=== PATIENT | female | born 1995 | race Caucasian/White ===

== ENCOUNTER 2016-12-19 12:20 | Emergency (ER) | payer OTHER ==
[2016-12-19] MEDS ORDERED: SODIUM CHLORIDE 0.9% 500 ML IV STA (13:12)
[2016-12-19] MEDS ORDERED: SODIUM CHLORIDE 0.9% 1,000 ML IV STA (13:12)
[2016-12-19] MEDS ORDERED: MORPHINE SULFATE 10 MG/ML SYRINGE IVP PRN (13:14)
[2016-12-19] MEDS ORDERED: ONDANSETRON ODT 4 MG TAB PO STA (13:15)
[2016-12-19 13:43] LABS: Anisocytosis Slight; Basophils % (A) 0 %; CH 21.2; CHCM 29.1; Eosinophils % (A) 0 %; HCT 34.2 % (34.0-46.0); HDW 2.69; Hypochromasia Marked; Luc # (Auto) 0.05; Luc % (Auto) 1; Lymphocytes # (A) 0.7 k/uL (1.0-4.8); Lymphocytes % (A) 11 %; MCH 21.3 pg (25.0-35.0); MCHC 29.3 g/dL (31.0-37.0); MCV 72.8 fL (80.0-100.0); Microcytosis Moderate; Monocytes # (A) 0.3 k/uL (0-1.0); Monocytes % (A) 5 %; Neutrophils # (A) 5.4 k/uL (1.3-7.7); Neutrophils % (A) 83 %; WBC 6.5 k/uL (4.0-11.0); WBC (Perox) 6.25
[2016-12-19 13:52] LABS: ALT 31 U/L (9-52); AST 20 U/L (14-36); Alkaline Phosphatase 50 U/L (38-126); Anion Gap 10 mmol/L; Blood Urea Nitrogen 14 mg/dL (7-17); Calcium 9.3 mg/dL (8.4-10.2); Carbon Dioxide 24 mmol/L (22-30); Chloride 104 mmol/L (98-107); Glucose 87 mg/dL (74-99); Non-African American GFR(MDRD) >60 (>60 ml/min/1.73 sqM); Potassium 4.1 mmol/L (3.5-5.1); Sodium 138 mmol/L (137-145); Total Bilirubin 0.5 mg/dL (0.2-1.3); Total Protein 7.3 g/dL (6.3-8.2)
[2016-12-19 14:01] LABS: Creatine Kinase 64 U/L (30-135)
[2016-12-19 14:03] LABS: Partial Thromboplastin Time 26.6 sec (22.0-30.0); Prothrombin Time 10.5 sec (9.0-12.0)
--- NOTE | 2016-12-19 14:05 | ED ---
SOB HPI - General Chief Complaint: Shortness of Breath Stated Complaint: chest pain, diff breathing Time Seen by Provider: 12/19/16 13:06 Source: patient Mode of arrival: ambulatory Limitations: no limitations - History of Present Illness Initial Comments: 21 years old female presented with shortness of breath for the last 2 days and now pain in the left side of the chest is worse with deep breaths. She denies any trauma any fall or any extreme short of physical activity over the last few days. She has no history of asthma she denies any control pills she does smoke for the last 3 years. No fever no chills no sputum no abdominal pain no frequency urgency dysuria - Related Data Home Medications Medication Instructions Recorded Confirmed Naproxen 500 mg PO Q12H PRN 12/19/16 12/19/16 Allergies Allergy/AdvReac Type Severity Reaction Status Date / Time No Known Allergies Allergy Verified 12/19/16 13:25 Review of Systems ROS Statement: Those systems with pertinent positive or pertinent negative responses have been documented in the HPI. ROS Other: All systems not noted in ROS Statement are negative. Past Medical History Past Medical History: No Reported History History of Any Multi-Drug Resistant Organisms: None Reported Past Surgical History: No Surgical Hx Reported Past Psychological History: No Psychological Hx Reported Smoking Status: Current every day smoker Past Alcohol Use History: None Reported Past Drug Use History: None Reported General Exam - General Exam Comments Initial Comments: General: The patient is awake and alert, in no distress, and does not appear acutely ill. Skin: Skin is warm and dry and no rashes or lesions are noted. Eye: Pupils are equal, round and reactive to light, extra-ocular movements are intact; there is normal conjunctiva bilaterally. Ears, nose, mouth and throat: There are moist mucous membranes and no oral lesions. Neck: The neck is supple, there is no tenderness or JVD. Cardiovascular: There is a regular rate and rhythm. No murmur, rub or gallop is appreciated. Respiratory: To auscultation bilateral, no wheezing no rhonchi no distress respiratory myers noticed Gastrointestinal: Soft, non-distended, non-tender abdomen without masses or organomegaly noted. There is no rebound or guarding present. Bowel sounds are unremarkable. Back: There is no tenderness to palpation in the midline. There is no obvious deformity. Musculoskeletal: Normal ROM, no tenderness, There is no pedal edema. There is no calf tenderness or swelling. No cords were appreciated. Neurological: CN II-XII intact, Cranial nerves III through XII are intact. There are no obvious motor or sensory deficits. Coordination appears grossly intact. Speech is normal. Psychiatric: Cooperative, appropriate mood & affect, normal judgment. Limitations: no limitations Course Vital Signs 12/19/16 12/19/16 12/19/16 12:29 14:43 15:22 Temperature 98.5 F Pulse Rate 90 72 66 Respiratory 20 18 20 Rate Blood Pressure 108/58 97/56 97/59 O2 Sat by Pulse 100 97 97 Oximetry EKG was reviewed in the ER, is normal sinus rhythm ventricular rate is 91 AK interval is 158 QRS duration is 80 QT/QTc is 356/437, this EKG noticed some T- wave inversion in lead V5 and some T-wave flattening in aVL and aVF no ST elevation noticed in this ekg At term 1520 patient was reassessed, her chest x-ray didn't show any pneumothorax, troponin is negative, comprehensive metabolic panel, CBC within normal range so is the d-dimer at this point seems like a chest wall pain she is advised to use some Advil 4-600 mg 3 times a day as needed and follow-up with family doctor or return to the ER Medical Decision Making - Lab Data Result diagrams: 12/19/16 13:30 12/19/16 13:30 Lab Results 12/19/16 12/19/16 12/19/16 Range/Units 13:30 13:30 13:30 WBC (4.0-11.0) k/uL RBC (3.80-5.40) m/uL Hgb (11.4-16.0) gm/dL Hct (34.0-46.0) % MCV (80.0-100.0) fL MCH (25.0-35.0) pg MCHC (31.0-37.0) g/dL RDW (11.5-15.5) % Plt Count (150-450) k/uL Neutrophils % % Lymphocytes % % Monocytes % % Eosinophils % % Basophils % % Neutrophils # (1.3-7.7) k/uL Lymphocytes # (1.0-4.8) k/uL Monocytes # (0-1.0) k/uL Eosinophils # (0-0.7) k/uL Basophils # (0-0.2) k/uL Hypochromasia Anisocytosis Microcytosis PT 10.5 (9.0-12.0) sec INR 1.0 (<1.2) APTT 26.6 (22.0-30.0) sec D-Dimer 0.36 (<0.60) mg/L FEU Sodium (137-145) mmol/L Potassium (3.5-5.1) mmol/L Chloride (98-107) mmol/L Carbon Dioxide (22-30) mmol/L Anion Gap mmol/L BUN (7-17) mg/dL Creatinine (0.52-1.04) mg/dL Est GFR (MDRD) Af Amer (>60 ml/min/1.73 sqM) Est GFR (MDRD) Non-Af (>60 ml/min/1.73 sqM) Glucose (74-99) mg/dL Calcium (8.4-10.2) mg/dL Total Bilirubin (0.2-1.3) mg/dL AST (14-36) U/L ALT (9-52) U/L Alkaline Phosphatase (38-126) U/L Total Creatine Kinase 64 (30-135) U/L CK-MB (CK-2) <0.2 (0.0-2.4) ng/mL CK-MB (CK-2) Rel Index Troponin I <0.012 (0.000-0.034) ng/mL Total Protein (6.3-8.2) g/dL Albumin (3.5-5.0) g/dL Urine HCG, Qual Not Detected (Not Detectd) 12/19/16 12/19/16 Range/Units 13:30 13:30 WBC 6.5 (4.0-11.0) k/uL RBC 4.70 (3.80-5.40) m/uL Hgb 10.0 L (11.4-16.0) gm/dL Hct 34.2 (34.0-46.0) % MCV 72.8 L (80.0-100.0) fL MCH 21.3 L (25.0-35.0) pg MCHC 29.3 L (31.0-37.0) g/dL RDW 17.0 H (11.5-15.5) % Plt Count 254 (150-450) k/uL Neutrophils % 83 % Lymphocytes % 11 % Monocytes % 5 % Eosinophils % 0 % Basophils % 0 % Neutrophils # 5.4 (1.3-7.7) k/uL Lymphocytes # 0.7 L (1.0-4.8) k/uL Monocytes # 0.3 (0-1.0) k/uL Eosinophils # 0.0 (0-0.7) k/uL Basophils # 0.0 (0-0.2) k/uL Hypochromasia Marked Anisocytosis Slight Microcytosis Moderate PT (9.0-12.0) sec INR (<1.2) APTT (22.0-30.0) sec D-Dimer (<0.60) mg/L FEU Sodium 138 (137-145) mmol/L Potassium 4.1 (3.5-5.1) mmol/L Chloride 104 (98-107) mmol/L Carbon Dioxide 24 (22-30) mmol/L Anion Gap 10 mmol/L BUN 14 (7-17) mg/dL Creatinine 0.69 (0.52-1.04) mg/dL Est GFR (MDRD) Af Amer >60 (>60 ml/min/1.73 sqM) Est GFR (MDRD) Non-Af >60 (>60 ml/min/1.73 sqM) Glucose 87 (74-99) mg/dL Calcium 9.3 (8.4-10.2) mg/dL Total Bilirubin 0.5 (0.2-1.3) mg/dL AST 20 (14-36) U/L ALT 31 (9-52) U/L Alkaline Phosphatase 50 (38-126) U/L Total Creatine Kinase (30-135) U/L CK-MB (CK-2) (0.0-2.4) ng/mL CK-MB (CK-2) Rel Index Troponin I (0.000-0.034) ng/mL Total Protein 7.3 (6.3-8.2) g/dL Albumin 4.3 (3.5-5.0) g/dL Urine HCG, Qual (Not Detectd) Disposition Clinical Impression: Left sided chest pain, Pleuritic chest pain Disposition: HOME SELF-CARE Condition: Good Instructions: Chest Wall Pain (ED) Referrals: Dave Hou DO [Primary Care Provider] - 1-2 days
[2016-12-19 14:14] LABS: Creatine Kinase MB <0.2 ng/mL (0.0-2.4); Troponin I <0.012 ng/mL (0.000-0.034)
[2016-12-19] MEDS ORDERED: ACETAMINOPHEN TAB 500 MG TAB PO STA (15:16)
--- NOTE | 2016-12-19 15:16 | XR ---
EXAMINATION TYPE: XR chest 2V DATE OF EXAM: 12/19/2016 COMPARISON: NONE INDICATION: Short of breath left-sided chest pain TECHNIQUE: Frontal and lateral views of the chest are obtained. FINDINGS: The heart size is normal. The pulmonary vasculature is normal. The lungs are clear. IMPRESSION: 1. No acute pulmonary process.
[2016-12-19 15:23] VITALS: BP 97/59; PULSE 66; RESP 20
[2016-12-19 15:34] VITALS: TEMP 97.9
== END 2016-12-19 15:33 | disposition home or self-care (01) ==
LOC: EC 12:20
DX: R07.81 Pleurodynia (principal); F17.200 Nicotine dependence, unspecified, uncomplicated
CPT/HCPCS: 99285 ×2; 96374 ×2; 96361 ×3; 36415; 93005; 85379; 80053; 82550; 82553; 84484; 85025; 85610; 85730; 81025; 71020; J2270